=== PATIENT | female | born 2000 | race Two or more races ===

== ENCOUNTER 2021-03-04 04:29 | Emergency (ER) | payer SELFPAY ==
[~2021-03-04] VITALS: Ht 152.4 cm; Wt 72.9 kg
[2021-03-04 07:30] VITALS: BP 148/92
--- NOTE | 2021-03-04 08:25 | ED.ADGEN ---
General Adult EDM: Chief Complaint: TOE PROBLEM HPI: HPI: Patient is a previously healthy 20-year-old female who presents to the emergency room complaining of right fourth toe pain. Patient states that yesterday evening she tripped over her dog and stubbed her toe. 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 She states that she started getting shooting pains of her foot. She took her shoe off and saw that her toe was bruised and that there is swelling. Her supervisor [employer] told her to come to the emergency room for evaluation. Patient states that she has some soreness in the toe now. She states there is an significant pain if she is not walking on it. She is able to stand and walk. She denies any other injuries. She denies any sensation changes. Review of Systems: Review of Systems: Complete ROS is negative unless otherwise documented in HPI Allergies: Allergies: Allergies Coded Allergies Type Severity Reaction Last Updated Verified No Known Drug Allergies 03/04/21 No Physical Exam: PE: General: Awake, alert, NAD. Well Nourished, well hydrated. Cooperative HEENT: Atraumatic, EOMI, PERRL, airway patent, moist oral mucosa Neck: Supple, trachea midline Respiratory: CTA bilaterally, normal effort, no wheezing/crackles CV: RRR, no murmur, cap refill <2 GI: Soft, nondistended, nontender, no masses MSK: Right foot: Fourth toe with minimal swelling and bruising throughout the toe extending into the dorsal foot, intact range of motion, intact sensation, 2+ DP pulse Skin: Warm, dry, intact Neuro: A&O x3, speech NL, sensory and motor grossly intact, no focal deficits Psych: Normal affect, normal mood, not suicidal or homicidal Current Patient Data: Vital Signs: Vital Signs Date Time Temp Pulse Resp B/P (MAP) Pulse Ox O2 Delivery O2 Flow Rate FiO2 03/04/21 07:30 97.8 73 16 148/92 (110) 100 Room Air 97.8 EKG: EKG: [] Heart Score: C/O Chest Pain: N/A Risk Factors: Risk Factors: DM, Current or recent (<one month) smoker, HTN, HLP, family history of CAD, obesity. Risk Scores: Score 0 - 3: 2.5% MACE over next 6 weeks - Discharge Home Score 4 - 6: 20.3% MACE over next 6 weeks - Admit for Clinical Observation Score 7 - 10: 72.7% MACE over next 6 weeks - Early Invasive Strategies Radiology/Procedures: Radiology/Procedures: [] Course & Med Decision Making: Course & Med Decision Making Pertinent Labs and Imaging studies reviewed. (See chart for details) Patient is a 20-year-old female who presents to the emergency room complaining of toe pain. Patient has full range of motion and sensation. X-ray was done to evaluate for any fractures. X-ray is negative. Patient was given information on tonya taping toes. Patient's test results and vitals while in the ED were fully reviewed and discussed with the patient. Patient is stable and at this time does not need admission to the hospital. We have discussed strict return precautions and the importance of following up with their Primary Care Physician. Patient stated understanding and was given an opportunity to ask any questions. Patient is in agreement with plan. Dragon Disclaimer: Dragon Disclaimer: This electronic medical record was generated, in whole or in part, using a voice recognition dictation system. Departure Departure Impression: Primary Impression: Toe sprain Disposition: HOME / SELF CARE / HOMELESS Condition: STABLE Referrals: NO PCP (PCP) Patient Instructions: Tonya Taping of Toes DENISE TREVIÑO MD March 04, 2021 08:25
--- NOTE | 2021-03-04 08:30 | RAD ---
XR FOOT_RIGHT 2 VIEWS 03/04/2021 7:56 AM INDICATION: Pain, swelling and trauma COMPARISON: None available. TECHNIQUE: 2 views of the right foot are provided. FINDINGS/ IMPRESSION: There is no acute fracture or dislocation. Joint spaces are maintained. Bone mineralization is within normal limits. Regional soft tissues are within normal limits. There is no soft tissue gas or osseou s erosion. No radiopaque foreign body. Electronically signed by: Leilani Galarza MD (03/04/2021 8:27 AM) [id number]
== END 2021-03-04 08:55 | disposition home or self-care (01) ==
LOC: ER 04:29
DX: S93.504A Unspecified sprain of right lesser toe(s), initial encounter (principal); W01.0XXA Fall on same level from slipping, tripping and stumbling without subsequent striking against object, initial encounter; Y93.89 Activity, other specified; Y92.89 Other specified places as the place of occurrence of the external cause; Y99.8 Other external cause status
CPT/HCPCS: 73620; 99283

== ENCOUNTER 2021-05-17 17:05 | Emergency (ER) | payer SELFPAY ==
[~2021-05-17] VITALS: Ht 152.4 cm; Wt 73.7 kg
[2021-05-17 18:40] VITALS: BP 121/74
[2021-05-17 19:17] LABS: BILIRUBIN,URINE NEGATIVE (NEG); CLARITY,URINE CLEAR; COLOR,URINE YELLOW; NITRITE,URINE POSITIVE (NEG); PH,URINE 5.5 (<5.0-8.0); PROTEIN,URINE NEGATIVE (NEG-TRACE); UROBILINOGEN,URINE 0.2 mg/dL (0.2 mg/dL)
[2021-05-17 19:26] LABS: AMPHETAMINE/METHAMPHETAMINE NEG (NEG); BARBITURATES NEG (NEG); BENZODIAZEPINES NEG (NEG); CANNABINOIDS POS (NEG); COCAINE NEG (NEG); METHADONE NEG (NEG); OPIATES NEG (NEG); PHENCYCLIDINE NEG (NEG)
[2021-05-17 19:30] LABS: BACTERIA,URINE MANY /HPF (0-FEW); HYALINE CASTS, URINE FEW /HPF
[2021-05-17] MEDS ORDERED: ONDANSETRON ODT 4 MG TAB.RAPDIS. PO ONE (19:45)
--- NOTE | 2021-05-17 20:29 | RAD ---
STUDY: CT head and cervical spine without contrast INDICATION: Fall. COMPARISON: None. TECHNIQUE: Axial CT imaging through the head and cervical spine without the use of intravenous contra st. Sagittal and coronal reformats were obtained. One or more of the following individualized dose reduction techniques were utilized for this examinat ion: 1. Automated exposure control 2. Adjustment of the mA and/or kV according to patient size 3. Use of iterative reconstruction technique. FINDINGS: CT head: No acute intracranial hemorrhage. No mass effect, midline shift or hydrocephalus. Martinez-white matter d ifferentiation is maintained. No depressed calvarial fracture. Trace amount of fluid dependently within the left maxillary sinus th at this measures simple density and favored inflammatory. Unremarkable mastoid air cells and middle e ars. No appreciable fracture of the partially imaged facial bones. Unremarkable orbits. CT cervical spine: No acute fracture or traumatic malalignment. No osseous encroachment on the central canal or neural f oramina. No soft tissue sequela of trauma. Unremarkable thyroid and lung apices. IMPRESSION: CT head: 1. No acute intracranial abnormality by CT. CT cervical spine: 1. No acute fracture or traumatic malalignment. Electronically signed by: JOY ALTMAN MD (05/17/2021 8:27 PM) [facility]
--- NOTE | 2021-05-17 20:59 | PHYS DOC ---
Past Medical History Past Medical History: No Pertinent History Past Surgical History: Cholecystectomy, Oophorectomy, Other Additional Past Surgical Histo: Breast Reduction Smoking Status: Light Tobacco Smoker Alcohol Use: Occasionally Social History Narrative: daily smoker General Adult EDM: Chief Complaint: MECHANICAL FALL HPI: HPI: 21-year-old female past medical history of migraine headaches presents the ED wi th complaints of headache on the top of her head after patient collapsed while outside at the [employer]. Patient states she felt flushed and woke up on a concrete floor. Admits to drinking alcohol and smoking marijuana. Denies any history of intracranial hemorrhage. Has a steady gait. Complains of bruises to both anterior shins from hitting wooden object, tetanus is up-to-date. Has a steady gait. No personal or family history of AAA, AAD, CTD ([place] or [place]), cardiac arrhythmias (need for AICD), sudden or unexplainable (under 50 years of age or with exertion), or clotting disorders. FH CAD. Review of Systems: Review of Systems: Constitutional: Denies fever or chills. [] Eyes: Denies change in visual acuity. [] HENT: Denies nasal congestion or sore throat. [] Respiratory: Denies cough or shortness of breath. [] Cardiovascular: Denies chest pain or edema. [] GI: Denies abdominal pain, bloody stools or diarrhea. [] : Denies dysuria or vaginal bleeding Musculoskeletal: Denies back pain or joint pain. [] Integument: Denies rash or diaphoresis Neurologic: Denies neck pain, focal weakness or sensory changes. [] Endocrine: Denies polyuria or polydipsia. [] Lymphatic: Denies swollen glands. [] Psychiatric: Denies depression or anxiety. [] Heart Score: C/O Chest Pain: No Risk Factors: Risk Factors: DM, Current or recent (<one month) smoker, HTN, HLP, family history of CAD, obesity. Risk Scores: Score 0 - 3: 2.5% MACE over next 6 weeks - Discharge Home Score 4 - 6: 20.3% MACE over next 6 weeks - Admit for Clinical Observation Score 7 - 10: 72.7% MACE over next 6 weeks - Early Invasive Strategies Current Medications: Current Medications Medications (Trade) Dose Ordered Sig/Myron Start Time Stop Time Status Last Admin Dose Admin Ondansetron HCl (Zofran Odt) 4 mg 1X ONCE 05/17/21 19:45 05/17/21 19:46 DC 05/17/21 19:56 4 MG Allergies: Allergies: Allergies Coded Allergies Type Severity Reaction Last Updated Verified No Known Drug Allergies 03/04/21 No Physical Exam: PE: Constitutional: Well developed, well nourished, no acute distress, non-toxic appearance. HENT: Normocephalic, atraumatic, depression hematomas, normal tympanic membranes bilaterally Eyes: PERRLA, EOMI, conjunctiva normal, no discharge, no mccurdy sign, no raccoon eyes Neck: Normal range of motion, supple, Cardiovascular: S1/2 present, regular rhythm Lungs & Thorax: Speaking in full sentences, bilateral equal chest rise, no tachypnea or increased work of breathing Abdomen: soft, no tenderness, Skin: Warm, dry, no erythema, no rash. [] Back: No tenderness, no CVA tenderness. [] Extremities: No tenderness, no cyanosis, no lower extremity edema Neurologic: Alert and oriented X 3, normal motor function, normal sensory function, no focal deficits noted. [] Psychologic: Affect normal, judgement normal, mood normal. [] Current Patient Data: Labs: Laboratory Tests Test 05/17/21 18:47 05/17/21 18:57 Urine Collection Type Void Urine Color Yellow Urine Clarity Clear Urine pH 5.5 (<5.0-8.0) Urine Specific [place] 1.015 (1.000-1.030) Urine Protein Negative mg/dL (NEG-TRACE) Urine Glucose (UA) Negative mg/dL (NEG) Urine Ketones (Stick) Negative mg/dL (NEG) Urine Blood Negative (NEG) Urine Nitrite Positive (NEG) Urine Bilirubin Negative (NEG) Urine Urobilinogen Dipstick 0.2 mg/dL (0.2 mg/dL) Urine Leukocyte Esterase Trace (NEG) Urine RBC 1-2 /HPF (0-2) Urine WBC 1-4 /HPF (0-4) Urine Squamous Epithelial Cells Many /LPF Urine Bacteria Many /HPF (0-FEW) Urine Hyaline Casts Few /HPF Urine Mucus Marked /LPF Urine Opiates Screen Neg (NEG) Urine Methadone Screen Neg (NEG) Urine Barbiturates Neg (NEG) Urine Phencyclidine Screen Neg (NEG) Urine Amphetamine/Methamphetamine Neg (NEG) Urine Benzodiazepines Screen Neg (NEG) Urine Cocaine Screen Neg (NEG) Urine Cannabinoids Screen Pos (NEG) Urine Ethyl Alcohol Neg (NEG) POC Urine HCG, Qualitative Hcg negative (Negative) Vital Signs: Vital Signs Date Time Temp Pulse Resp B/P (MAP) Pulse Ox O2 Delivery O2 Flow Rate FiO2 05/17/21 18:40 97.9 77 18 121/74 (110) 99 Room Air 97.9 EKG: EKG: Sinus rhythm 50 bpm, no axis deviation, normal intervals, no T wave inversions, no ST elevations or ST depressions, no dagger Q waves, no LVH, no epsilon wave, no delta wave Radiology/Procedures: Radiology/Procedures: [] IMAGING REPORT Signed PATIENT: HOLDEN CANTU ACCOUNT: [id number] : 2000 LOCATION: ER AGE: 21 SEX: F EXAM STATUS: REG ER ORD. PHYSICIAN: SHRUTHI LYON DO REASON: fall PROCEDURE: CT HEAD AND CERVICAL SPINE WO STUDY: CT head and cervical spine without contrast INDICATION: Fall. COMPARISON: None. TECHNIQUE: Axial CT imaging through the head and cervical spine without the use of intravenous contrast. Sagittal and coronal reformats were obtained. One or more of the following individualized dose reduction techniques were utilized for this examination: 1. Automated exposure control 2. Adjustment of the mA and/or kV according to patient size 3. Use of iterative reconstruction technique. FINDINGS: CT head: No acute intracranial hemorrhage. No mass effect, midline shift or hydrocephalus. Martinez-white matter differentiation is maintained. No depressed calvarial fracture. Trace amount of fluid dependently within the left maxillary sinus that this measures simple density and favored inflammatory. Unremarkable mastoid air cells and middle ears. No appreciable fracture of the partially imaged facial bones. Unremarkable orbits. CT cervical spine: No acute fracture or traumatic malalignment. No osseous encroachment on the central canal or neural foramina. No soft tissue sequela of trauma. Unremarkable thyroid and lung apices. IMPRESSION: CT head: 1. No acute intracranial abnormality by CT. CT cervical spine: 1. No acute fracture or traumatic malalignment. Electronically signed by: JOY ALTMAN MD (05/17/2021 8:27 PM) [facility] DICTATED and SIGNED BY: JOY ALTMAN MD DATE: 05/17/[id number] 0 Course & Med Decision Making: Course & Med Decision Making Pertinent Labs and Imaging studies reviewed. (See chart for details) Concern for syncope in the setting of alcohol and marijuana abuse, heat exhaustion also considered. Patient tolerating oral intake. No hematoma on physical exam. CT imaging with no acute trauma. EKG unremarkable. Urinalysis does show urinary tract infection will prescribe antibiotics. Will discharge home with strict ED return precautions were given for repeat head injury, neurologic deficits, severe headache, chest pain or syncope. Encouraged urgent outpatient follow-up with PMD. Life-threatening processes were considered but are low suspicion at this time, given history, physical exam and ED workup. Pt was educated on all prescription medications and adverse effects. All patient's questions were answered and pt was stable at time of discharge. Life/limb-threatening differential includes but is not limited to, abdominal aortic aneurysm, aortic dissection, acute coronary syndrome, anemia, valvular disorder, cerebrovascular accident, drug overdose or toxidrome, arrhythmia, prolonged QT syndrome, hemorrhage, heat illness, intracranial hemorrhage, infection including meningitis/encephalitis/sepsis/toxic shock/myocarditis, vertebrobasilar insufficiency, seizure, medication adverse event, illicit drug use, electrolyte disorder I have spoken with the patient and/or caregivers. I explained the patient's condition, diagnoses and treatment plan based on the information available to me at this time. I have answered the patient and/or caregiver's questions and addressed any concerns. The patient and/or caregivers have a good understanding of patient's diagnosis, condition and treatment plan as can be expected at this point. Vital signs have been stable. Patient's condition is stable and appropriate for discharge from the emergency department. Patient will pursue further outpatient evaluation with primary care physician or other designated or consulting physician as outlined in the discharge instructions. The patient and/or caregivers are agreeable to this plan of care and follow-up instructions have been explained in detail. The patient and/or caregivers have received these instructions in written form and have expressed an understanding of the discharge instructions. The patient and/or caregivers are aware that any significant change of condition or worsening of symptoms should prompt immediate return to this or the closest emergency department or call to 911. Pat Disclaimer: Pat Disclaimer: This electronic medical record was generated, in whole or in part, using a voice recognition dictation system. Departure Departure Impression: Primary Impression: Syncope and collapse Additional Impressions: Multiple leg contusions UTI (urinary tract infection) Disposition: HOME / SELF CARE / HOMELESS Condition: STABLE Referrals: NO PCP (PCP) Follow-up with your primary care physician in 24 to 48 hours OR FOLLOW UP WITH FAMILY MEDICINE: [address] [place] [place] [address] Patient Instructions: Contusion, Head Injury, Adult, Urinary Tract Infection Additional Instructions: EMERGENCY DEPARTMENT GENERAL DISCHARGE INSTRUCTIONS Thank you for coming to [facility] Emergency Department (ED) today and trusting us with you care. We trust that you had a positive experience in our Emergency Department. If you wish to speak to the department management, you may call the Director at [phone]. YOUR FOLLOW UP INSTRUCTIONS ARE FOLLOWS: 1. Do you have a private Doctor? If you do not have a private doctor, please ask for a resource list of physicians or clinics that may be able to assist you with follow up care. 2. The Emergency Physicain has interpreted your x-rays. The X-Ray specialist will also review them. If there is a change in the findings, you will be notified in 48 hours when at all possible. 3. A lab test or culture has been done, your results will be reviewed and you will be notified if you need a change in treatment. ADDITIONAL INSTRUCTIONS AND INFORMATION: 1. Your care today has been supervised by a physician who is specially trained in emergency care. Many problems require more than one evaluation for a complete diagnosis and treatment. We recommend that you schedule your follow up appointment as recommended to ensure complete treatment of you illness or injury. If you are unable to obtain follow up care and continue to have a problem, or if your condition worsens, we recommend that you return to the ED. 2. We are not able to safely determine your condition over the phone nor are we able to give sound medical advice over the phone. For these safety reasons, if you call for medical advice we will ask you to come to the ED for further evaluation. 3. If you have any questions regarding these discharge instructions please call the ED at [phone]. SAFETY INFORMATION: In the interest of safety, wellness, and injury prevention; we encourage you to wear your sealbelt, if you smoke; quite smoking, and we encourage family to use a protective helmet for bicycling and other sporting events that present an increased risk for head injury. IF YOUR SYMPTOMS WORSEN OR NEW SYMPTOMS DEVELOP, OR YOU HAVE CONCERNS ABOUT YOUR CONDITION; OR IF YOUR CONDITION WORSENS WHILE YOU ARE WAITING FOR YOUR FOLLOW UP APPOINTMENT; EITHER CONTACT YOUR PRIMARY CARE DOCTOR, THE PHYSICIAN WHOSE NAME AND NUMBER YOU WERE GIVEN, OR RETURN TO THE ED IMMEDIATELY. Scripts Cephalexin (CEPHALEXIN) 500 Mg Capsule 1 CAP PO BID for 7 Days, #14 CAP Prov: SHRUTHI LYON DO 05/17/21 SHRUTHI LYON DO May 17, 2021 20:59
[2021-05-17] MEDS ORDERED: CEPH500C PO (21:14)
--- NOTE | 2021-05-18 01:11 | EKG ---
[facility] [address] [place] [address] Test Date: 2021-05-17 Test Time: 21:32:11 Pat Name: HOLDEN CANTU Department: Room: Gender: F Mortgage Clerk: : 2000 Requested By: SHRUTHI LYON Order Number: [id number] Reading MD: Measurements Intervals [place] Rate: 50 P: 51 VA: 142 QRS: 33 QRSD: 96 T: 26 QT: 436 QTc: 400 Interpretive Statements SINUS RHYTHM NO SPECIFIC ECG ABNORMALITIES RI6.02 No previous ECG available for comparison
== END 2021-05-17 22:15 | disposition home or self-care (01) ==
LOC: ER 17:05
DX: S80.12XA Contusion of left lower leg, initial encounter (principal); S80.11XA Contusion of right lower leg, initial encounter; R55 Syncope and collapse; N39.0 Urinary tract infection, site not specified; G43.909 Migraine, unspecified, not intractable, without status migrainosus; Z72.0 Tobacco use; Z90.710 Acquired absence of both cervix and uterus; Z90.722 Acquired absence of ovaries, bilateral; W18.39XA Other fall on same level, initial encounter; Y93.89 Activity, other specified; Y92.89 Other specified places as the place of occurrence of the external cause; Y99.8 Other external cause status
CPT/HCPCS: 70450; 72125; 80307; 81001; 81025; 87086; 93005; 99285-25